=== PATIENT | female | born 1985 | race Caucasian/White ===

== ENCOUNTER → 2023-06-13 11:56 | Outpatient (REF) | payer OTHER, SELFPAY | LOC: RAD 11:56 | PROVIDERS: ATTENDING PHYSICIAN Internal Medicine | DX: M25.50 Pain in unspecified joint (principal) | CPT/HCPCS: 72202; 73130; 73560; 73565 ==

== ENCOUNTER → 2023-07-25 11:28 | Outpatient (REF) | payer OTHER, SELFPAY | LOC: RAD 11:28 | PROVIDERS: ATTENDING PHYSICIAN Internal Medicine; FAMILY PHYSICIAN Family Medicine | DX: M25.549 Pain in joints of unspecified hand (principal) | CPT/HCPCS: 76882 ==